=== PATIENT | female | born 1985 | race Caucasian/White ===

== ENCOUNTER 2017-05-24 09:36 | Emergency (ER) | payer OTHER ==
[2017-05-24 09:52] VITALS: PULSE 74; RESP 18; TEMP 98
--- NOTE | 2017-05-24 10:00 | EDPHY ---
H & P HPI/ROS: CHIEF COMPLAINT: Right foot pain History by patient HISTORY OF PRESENT ILLNESS: 31 old woman presents complaining of pain in her right foot where she caught her toe on the corner of a dresser in the dark last night. She is having difficulty ambulating now because of pain. It is black and blue. She has not taken anything for pain. She denies any other pain or injury. She works as a social media community manager. REVIEW OF SYSTEMS: As in HPI, and all other systems reviewed and are negative Smoking Status: Never smoked Physical Exam: General Appearance: Alert and no distress. Eyes: Pupils equal and round no injection. Musculoskeletal: Neck is supple and nontender. Extremities: Right foot with positive ecchymoses over base of right small toe. Pain with range of motion of right small toe. DP pulse 2 +, distal sensation intact, distal cap refill less than 3 seconds. Skin: No rashes or lesions except as described above. Constitutional: Initial Vital Signs Temperature (C) 36.6 C 05/24/17 09:48 Heart Rate 74 05/24/17 09:48 Respiratory Rate 18 05/24/17 09:48 Blood Pressure 149/90 H 05/24/17 09:48 O2 Sat (%) 95 05/24/17 09:48 O2 Delivery Mode Room Air Allergies/Adverse Reactions: No Known Allergies Allergy (Unverified 09/07/15 13:53) Home Medications: Medication Instructions Recorded Lidocaine 5% [Lidoderm 5% Patch 1 ea TD DAILY #30 patch 05/24/17 (*)] MDM/Departure - MDM Imaging: I viewed and interpreted images myself ED Course/Re-evaluation: 28-year-old woman presents with right small toe pain after injury and x-ray reveals nondisplaced transverse fracture of the proximal phalanx. She declined pain medication in the emergency department. Patient's toes were gigi-taped she was given a hard-soled shoe and crutches. We discussed weight-bearing as tolerated. Patient is referred for primary care follow-up. - Depart Disposition: Home, Routine, Self-Care Clinical Impression: Toe fracture, right Qualifiers: Encounter type: initial encounter Toe: lesser toe Fracture type: closed Phalanx : proximal Fracture alignment: nondisplaced Qualified Code(s): S92.514A - Nondisplaced fracture of proximal phalanx of right lesser toe(s), initial encounter for closed fracture Condition: Good Instructions: Toe Fracture (ED) Additional Instructions: You were seen by Dr. Sadie Roberts today. Keep your toe gigi-taped to the toe next to it and wear the surgical shoe until the pain has resolved.. Apply ice and keep the foot elevated for pain. You may take ibuprofen 400 mg 4 times a day with or without Tylenol 1000 mg 4 times a day. Try also topical lidocaine patches. You may put as much weight as you can stand on the foot. Please establish primary care for provider to follow up with. We have referred you to Dr. Quiles or someone else in the [facility] practice here in [place], otherwise check with your insurance. Return for any worsening or new concerns. Prescriptions: Lidocaine 5% [Lidoderm 5% Patch (*)] 1 ea TD DAILY #30 patch Referrals: NONE *PRIMARY CARE P,. [Primary Care Provider] - As per Instructions Modesto Barrios DO [Doctor of Osteopathy] - As per Instructions
[2017-05-24 10:43] VITALS: BP 124/62; O2SAT 97
== END 2017-05-24 10:36 | disposition home or self-care (01) ==
LOC: CED 09:36
DX: S92.514A Nondisplaced fracture of proximal phalanx of right lesser toe(s), initial encounter for closed fracture (principal); W23.1XXA Caught, crushed, jammed, or pinched between stationary objects, initial encounter
CPT/HCPCS: 73630-PO; L3260

== ENCOUNTER → 2017-06-21 | Outpatient (CLI) | payer OTHER | LOC: CIMAGING 10:14 | PROVIDERS: ATTEND Family Medicine | DX: S92.514D Nondisplaced fracture of proximal phalanx of right lesser toe(s), subsequent encounter for fracture with routine healing (principal) | CPT/HCPCS: 73630-PO ==

== ENCOUNTER → 2017-07-26 | Outpatient (CLI) | payer OTHER | LOC: CIMAGING 10:41 | PROVIDERS: ATTEND Family Medicine | DX: S92.414D Nondisplaced fracture of proximal phalanx of right great toe, subsequent encounter for fracture with routine healing (principal) | CPT/HCPCS: 73630-PO ==